=== PATIENT | female | born 1950 | race African-American/Black ===

== ENCOUNTER 2017-09-21 08:50 | Outpatient (CLI) | payer MEDICARE ==
--- NOTE | 2017-09-21 10:29 | ULT ---
ULTRASOUND ABDOMEN COMPLETE: HISTORY: Right upper quadrant abdominal pain. COMPARISON: CT from 2017. FINDINGS: Real-time ross scale, color Doppler, and spectral analysis of the abdomen was performed. The aorta i s not dilated. IVC is unremarkable. Visualized portions of the pancreas are unremarkable. Normal increased hepatic echotexture. The liver measures 17.2 cm in length. The portal vein is patterson nt, antegrade flow. Common bile duct measures just over 6 mm, although normal in a patient of this a ge. Gallbladder wall thickness is normal. No pericholecystic fluid. The right kidney measures 12.6 x 3.9 x 4 cm without mass, hydronephrosis, or abnormal calcifications. The spleen measures 8.1 cm in length. The left kidney measures 11.5 x 5.7 x 5 cm with a 1.3 cm cys t. IMPRESSION: 1. Increased hepatic echotexture suggesting steatosis. 2. Left interpolar renal cyst measuring up to 1.3 cm. POS: [facility]
== END 2017-09-21 08:51 | disposition home or self-care (01) ==
LOC: SCSULT 08:50
PROVIDERS: ATTEND Internal Medicine Gastroenterology
DX: N28.1 Cyst of kidney, acquired (principal); K21.9 Gastro-esophageal reflux disease without esophagitis; R10.10 Upper abdominal pain, unspecified; R19.7 Diarrhea, unspecified; Z85.038 Personal history of other malignant neoplasm of large intestine; Z90.49 Acquired absence of other specified parts of digestive tract
CPT/HCPCS: 76700

== ENCOUNTER 2017-11-18 09:40 | Outpatient (CLI) | payer MEDICARE ==
[2017-11-18 11:06] LABS: Estimated GFR-MDRD - POC Greater than 90
--- NOTE | 2017-11-18 12:22 | CT ---
CT OF THE ABDOMEN AND PELVIS WITHOUT AND WITH CONTRAST: Date: 11/18/17 COMPARISON: None. HISTORY: Abdominal bloating and diarrhea. History of colon cancer. Status post right colectomy and appendectom y. TECHNIQUE: Multiple contiguous axial images were obtained in a CT of the abdomen and pelvis without and with IV contrast. Negative oral contrast administered. Sagittal and coronal reformats performed. FINDINGS: The liver, gallbladder, kidneys, adrenal glands, spleen, and pancreas are unremarkable. No free air, free fluid, or stranding changes are seen in the abdomen or pelvis. The reproductive organs are unremarkable. No abdominal or pelvic lymphadenopathy seen. Atherosclerotic calcifications are seen in the aorta. There is a moderate amount of stool throughout the colon. The small bowel is normal in caliber withou t significant distention. There is an area of apparent thickening of the proximal small bowel in the left abdomen seen on the more delayed phase images, but this is not apparent on the arterial phase im ages and may be transient rather than persistent thickening. The distal small bowel is unremarkable. The osseous structures and abdominal wall soft tissues are unremarkable. Visualized inferior thorax i s unremarkable. IMPRESSION: The proximal small bowel demonstrates an area of apparent thickening on the more delayed phase postco ntrast images. This may be transient as no definite thickening is seen in this location on the arter ial phase images. POS: [facility]
== END 2017-11-18 09:41 | disposition home or self-care (01) ==
LOC: CT 09:40
PROVIDERS: ATTEND Internal Medicine Gastroenterology
DX: R14.0 Abdominal distension (gaseous) (principal); R19.7 Diarrhea, unspecified; K21.9 Gastro-esophageal reflux disease without esophagitis; C18.2 Malignant neoplasm of ascending colon
CPT/HCPCS: 74178; 82565

== ENCOUNTER 2018-06-09 09:04 | Outpatient (CLI) | payer MEDICARE ==
--- NOTE | 2018-06-09 10:27 | MMO ---
BILATERAL MAMMOGRAMS: DATE: 06/09/18 HISTORY: Screening mammography. COMPARISON: 01/29/16. FINDINGS: Scattered fibroglandular densities and benign-appearing calcifications. No dominant mass or suspiciou s calcifications. The study was evaluated with the assistance of computer-aided detection. IMPRESSION: BIRADS 1: Negative Suggest routine follow-up. POS: [facility]
== END 2018-06-09 09:05 | disposition home or self-care (01) ==
LOC: SCSMAMMO 09:04
PROVIDERS: ATTEND Nurse Practitioner Adult Health
DX: Z12.31 Encounter for screening mammogram for malignant neoplasm of breast (principal)
CPT/HCPCS: 77067

== ENCOUNTER 2019-02-07 11:34 | Inpatient (IN) | payer MEDICARE ==
--- NOTE | 2019-02-07 12:56 | PDOC.FPRHP ---
- History of Present Illness Chief Complaint: abdominal pain History of Present Illness: Pt is 68-yo female w/ PMHx of T2DM, HTN, and colon cancer resected by hemicolectomy ~30 years ago, who presented to outside ED w/ abdominal pain, gas , abdominal cramping, and bloating which has been worsening over the past month. Pt was taking medication for gastritis, but this stopped working and her indigestion worsened. About 3 days ago she had diarrhea, nonbloody. Last bowel movement last night; it was soft and normal. She vomited once this AM, nonbloody. Came to ED since symptoms had not been resolving. Denies fevers, chills. ED Course: received 4mg zofran at [facility], labs drawn, started LR. NG 700 mL output. - Allergies/Adverse Reactions Allergies Allergy/AdvReac Type Severity Reaction Status Date / Time No Known Allergies Allergy Verified 09/08/16 17:04 - Home Medications Medication Instructions Recorded Confirmed Type Amlodipine Besylate [amLODIPine 5 mg PO BID 09/18/14 09/08/16 History Besylate] Aspirin [Aspirin EC] 81 mg PO DAILY 09/18/14 09/08/16 History Esomeprazole Magnesium [NexIUM] 40 mg PO QAM-WM 09/18/14 09/08/16 History Insulin Glargine,Hum.Rec.Anlog 50 unit SC 09/18/14 09/08/16 History [Lantus Solostar] metFORMIN HCl 1,000 mg PO DAILY 09/18/14 09/08/16 History - History PMHx: - HTN - T2DM - Arthritis - carpal tunnel - Raynaud's syndrome - GERD and gastritis PSHx: - D&C - Hemicolectomy for colon cancer FHx: not assessed Social: - Lives at home w/ . Stays active. - Former smoker: 0.5 ppd for 15-20 years. Quit ~15 years ago - Denies alcohol, drug use. - Review of Systems General: reports: weight/appetite/sleep changes (decreased appetite). denies: fever/chills ENT: denies: nasal congestion, rhinorrhea Respiratory: reports: cough. denies: congestion, shortness of breath Cardiovascular: denies: chest pain, edema Gastrointestinal: reports: nausea, vomiting, diarrhea, abdominal pain. denies: constipation, GI bleeding Genitourinary: denies: dysuria Skin: denies: rashes Musculoskeletal: reports: arthritis/arthralgias Neurological: denies: numbness, seizure Psychological: denies: anxiety, depression - Vital signs BP: 146/78 HR: 98 RR: 17 Tmax: 99.5 Pox: 98 % on RA Wt: 82 kg - Physical Exam Constitutional: NAD, awake, alert and oriented HEENT: normocephalic and atraumatic, EOMI, no scleral icterus, grossly normal vision, grossly normal hearing, MMM, oropharynx clear Heart: RRR, normal S1/S2, no murmurs/rubs/gallops, no edema Lungs: CTAB, no respiratory distress Abdomen: soft (mild distension, tympanic to percussion), non-tender -Abdomen: bowel sounds hypoactive Musculoskeletal: normal tone Neurological: no focal deficit Skin: no rash/lesions, good turgor Heme/Lymphatic: no unusual bruising or bleeding, no purpura, no petechia Psychiatric: normal mood and affect, intact recent and remote memory FMR H&P: Results - Labs Lab results: Anion gap 17. CBC wnl CMP wnl, except glucose of 214 lipase neg - Radiology Interpretation CT scan - abdomen Status: image reviewed by me, report reviewed by me Additional comment: c/w SBO Other Status: image reviewed by me, report reviewed by me Additional comment: KUB: c/w SBO FMR H&P: A/P - Problem List (1) Arthritis Current Visit: Yes Status: Chronic Code(s): M19.90 - UNSPECIFIED OSTEOARTHRITIS, UNSPECIFIED SITE (2) Gastritis Current Visit: Yes Status: Chronic Code(s): K29.70 - GASTRITIS, UNSPECIFIED , WITHOUT BLEEDING (3) SBO (small bowel obstruction) Current Visit: No Status: Acute Code(s): K56.69 - OTHER INTESTINAL OBSTRUCTION * DO NOT USE * (4) Diabetes type 2, controlled Current Visit: No Status: Chronic Code(s): E11.9 - TYPE 2 DIABETES MELLITUS WITHOUT COMPLICATIONS (5) GERD (gastroesophageal reflux disease) Current Visit: No Status: Chronic Code(s): K21.9 - GASTRO-ESOPHAGEAL REFLUX DISEASE WITHOUT ESOPHAGITIS (6) Hypertension Current Visit: No Status: Chronic Code(s): I10 - ESSENTIAL (PRIMARY) HYPERTENSION - Plan 68 yo female admitted for: Small bowel obstruction - CT abd in outside ED showing above Dx - NPO strict - bowel rest - pain mgmt: not currently w/ symptoms, morphine 2 mg q4h prn - LR at 125 ml/hr - NG tube in place, intermittent low wall suction - Zofran prn for nausea - strict I/Os - ambulate TID Elevated anion gap - possibly 2/2 to intake/output imbalance - will rehydrate and repeat CMP tomorrow Type 2 diabetes, on insulin - hold home insulin and diabetes medications - mild sliding scale insulin since pt is NPO - glucose checks TID while NPO, qACHS when we begin advancing diet Gastritis GERD - will give famotidine 20mg iv bid HTN - will give labetalol 10mg IV prn - begin home HTN meds once able to tolerate PO - daughter to bring in home med list sometime later today VTE PPx: SCDs only. GI PPx: famotidine 20mg IV BID Fluids: LR at 125 ml/hr Diet: NPO strict Disposition/LOS: Admit to inpatient surgical non-ortho floor. FMR H&P: Upper Level - Plan Date/Time: 02/07/19 1256 HPI: This is a 68 yo F with PMH including DM, Hemicolectomy 35 yrs ago 2/2 colon cancer, multiple previous SBOs, and HTN who comes in with abdominal pain which has been getting worse for the last month. Over the last few days has gotten acutely worse and vomited x1 this AM. States she did have a normal BM this AM, non-bloody. Denies fevers, chills, sweats. 12 point ROS otherwise negative PHYSICAL EXAMINATION: General: NAD, alert and oriented x3 HEENT: PERRLA, EOMI, normal sclera, oropharynx without erythema or exudate Neck: Supple. Full ROM. Heart/Cardiovascular System: RRR, Cap refill < 3 seconds, no rub, no murmur Lungs/Respiratory System: clear to auscultation bilaterally. No increased work of breathing. Room air. Abdomen/Gastro-Intestinal System: no abdominal tenderness, high pitched bowel sounds, no masses, no organomegaly Extremities: Warm extremities. No cyanosis or edema. Neuro: No gross deficits appreciated. CN 2-12 grossly intact Psychiatry: Awake, Alert and cooperative with exam Skin: No lesions, rashes, or ulcers Musculoskeletal: Full ROM A/P: #SBO- high-grade - has been evaluated by surgery, appreciate recs - medical management for now NPO, NG tube, Fluids - morphine, Zofran PRN - about 1L total output from NG tube this AM # DM - lantus 45U daily at home - NPO so sliding scale for now # Asymptomatic UTI - monitor #HTN Fluids: LR Code status: full PPx: lovenox Dispo: inpatient Addendum - Attending - Attending Attestation Date/Time: 02/07/19 9119 I personally evaluated the patient and discussed the management with Dr. Cooley I agree with the History, Examination, Assessment and Plan documented above with any addition or exceptions noted below- 68 yo female w/ PMHx of T2DM, HTN, and colon cancer resected by hemicolectomy ~30 years ago, who presented to [place] ED w/ abdominal pain, gas, abdominal cramping, and bloating which has been worsening over the past month. Today she had 1 episode of vomiting and has had some loose stools. Denies any fever or chills. Had a similar episode 2 years ago resolved with NGT suction and conservative management. PMH/PSH/Meds/ SH reviewed and agree with resident's documentation. Afebrile VSS. Exam repeated by me. Labs: WBC=8.3, H/H=12.1/40.8, Oug=821, By=817, K=4.1, Xf=023, CO2=22, BUN/Cr=9/1.01, Fzzf=402, Ca=11.2, Alb=4.6, AST/ALT=13/13 CT abd- dilated proximal and mid loops of bowel c/w high grade SBO A/P: 1) SBO- NGT placed for decompression; Surgery consulted await further recommendations. 2) DM - NPO; hold insulin; monitor accuchecks q6 hours. 3) HTN- will use labetolol IV as needed.
[2019-02-07] MEDS ORDERED: Acetaminophen 325 MG TAB PO PRN (13:20)
[2019-02-07] MEDS ORDERED: Ondansetron PF 4 MG/2 ML Vial IVP PRN (13:20)
[2019-02-07] MEDS ORDERED: Ondansetron ODT 4 MG TAB PO PRN (13:20)
[2019-02-07] MEDS ORDERED: Acetaminophen 650 MG Suppository PR PRN (13:20)
[2019-02-07] MEDS ORDERED: Dextrose 50% Abboject 50 ML SYRINGE SLOW IVP PRN (13:38)
[2019-02-07] MEDS ORDERED: Dextrose 5% in Water 1,000 ML IV PRN (13:38)
[2019-02-07] MEDS ORDERED: Labetalol HCl 100 MG/20 ML VIAL SLOW IVP PRN (13:40)
[2019-02-07] MEDS ORDERED: Morphine 2 MG/ML SYRINGE SLOW IVP PRN (13:41)
[2019-02-07 15:43] VITALS: BMI 27.5
[2019-02-07] MEDS: Lactated Ringer's 1,000 ML IV SCH ×2 (17:37→20:35)
[2019-02-07] MEDS ORDERED: FLU VACC TS2019-20(65YR UP)/PF 180 MCG/0.5 ML SYRINGE IM ONE (18:00)
[2019-02-07] MEDS: Famotidine/PF 20 mg/2ml Vial SLOW IVP SCH (20:04)
[2019-02-08] MEDS: HumaLOG 300 UNITS/3 ML VIAL SC PRN ×3 (00:52→17:27)
[2019-02-08] MEDS: Lactated Ringer's 1,000 ML IV SCH ×3 (03:48→19:38)
[2019-02-08 06:05] LABS: ALT (SGPT) 8 U/L (8-55); AST (SGOT) 12 U/L (5-34); Albumin 3.7 g/dL (3.4-4.8); Alkaline Phosphatase 68 U/L (40-110); Anion Gap 14 mmol/L (10-20); BUN (Urea Nitrogen) 8 mg/dL (9.8-20.1); Bilirubin, Total 0.6 mg/dL (0.2-1.2); Calc. Creatinine Clearance 75 mL/min (70-130); Calcium 9.3 mg/dL (7.8-10.44); Carbon Dioxide 29 mmol/L (23-31); Chloride 103 mmol/L (98-107); Estimated GFR-MDRD 74; Globulin 2.8 g/dL (2.4-3.5); Glucose 166 mg/dL (80-115); Potassium 3.5 mmol/L (3.5-5.1); Protein, Total 6.5 g/dL (6.0-8.3); Sodium 142 mmol/L (136-145)
[2019-02-08 06:06] LABS: #Basophils 0.1 thou/uL (0.0-0.2); #Lymphocytes 1.5 thou/uL (1.20-3.40); #Monocytes 0.5 thou/uL (0.11-0.59); #Neutrophils 5.6 thou/uL (1.40-6.50); %Basophils 1.1 % (0.0-1.0); %Eosinophils 0.4 % (0.0-10.0); %Lymphocytes 19.1 % (21.0-51.0); %Monocytes 6.3 % (0.0-10.0); %Neutrophils 73.2 % (42.0-75.0); Hemoglobin 10.4 g/dL (12.0-16.0); MDiff Complete? YES; Mean Corpuscular HGB CONC 31.3 g/dL (32.0-36.0); Mean Corpuscular Hemoglobin 23.4 pg (27.0-31.0); Mean Corpuscular Volume 74.9 fL (78.0-98.0); Mean Platelet Volume 10.2 fL (7.4-10.4); Microcytosis SLIGHT = 6-15 cells (100X) (0-5/hpf); Platelet Count 229 thou/uL (130-400); Platelet Morphology Comment Appears Adequate; RBC Distribution Width 16.6 % (11.5-14.5); Red Blood Cell (RBC) Count 4.44 mill/uL (4.20-5.40); White Blood Cell (WBC) Count 7.6 thou/uL (4.8-10.8)
--- NOTE | 2019-02-08 06:59 | PDOC.FM ---
- Subjective Subjective: NAEO. Patient resting comfortably sitting up in bed. SHe reports feeling much better than yesterday. She denies any abdominal pain. Denies any NV or chest pain. - Objective MAR Reviewed: Yes Vital Signs & Weight: Vital Signs (12 hours) Temp Pulse Resp BP Pulse Ox 02/08/19 03:37 99.1 F 97 16 125/69 95 02/07/19 23:37 99.8 F H 100 16 113/69 94 L 02/07/19 20:15 99.6 F 99 16 146/68 H 95 02/07/19 20:00 95 Weight Weight 82.214 kg I&O: 02/06/19 02/07/19 02/08/19 06:59 06:59 06:59 Intake Total 3377 Output Total 1300 Balance 7 Result Diagrams: 02/08/19 05:20 02/08/19 05:20 Phys Exam - Physical Examination Constitutional: NAD HEENT: PERRLA, moist MMs, sclera anicteric Neck: supple, full ROM Respiratory: clear to auscultation bilateral Cardiovascular: RRR Gastrointestinal: soft, non-tender, no distention, positive bowel sounds Musculoskeletal: no edema, pulses present Neurological: non-focal, moves all 4 limbs Psychiatric: normal affect, A&O x 3 Skin: no rash, normal turgor, cap refill <2 seconds Dx/Plan (1) Arthritis Code(s): M19.90 - UNSPECIFIED OSTEOARTHRITIS, UNSPECIFIED SITE Status: Chronic (2) Gastritis Code(s): K29.70 - GASTRITIS, UNSPECIFIED, WITHOUT BLEEDING Status: Chronic (3) SBO (small bowel obstruction) Code(s): K56.69 - OTHER INTESTINAL OBSTRUCTION * DO NOT USE * Status: Acute (4) Diabetes type 2, controlled Code(s): E11.9 - TYPE 2 DIABETES MELLITUS WITHOUT COMPLICATIONS Status: Chronic (5) GERD (gastroesophageal reflux disease) Code(s): K21.9 - GASTRO-ESOPHAGEAL REFLUX DISEASE WITHOUT ESOPHAGITIS Status: Chronic (6) Hypertension Code(s): I10 - ESSENTIAL (PRIMARY) HYPERTENSION Status: Chronic - Plan Plan: 68 yo female admitted for: Small bowel obstruction CT abd in outside ED showing high grade SBO involving mid-distal small bowel. - NPO strict, LR @ 125mls/hr. Will continue to monitor and when patient can start to advance diet as tolerated. - Pain mgmt: not currently w/ symptoms, morphine 2 mg q4h prn - NG tube in place, intermittent low wall suction NG has put out 1300ml as of this morning. - Zofran prn for nausea - strict I/Os - Encourage frequent ambulation; walking program in place Elevated anion gap possibly 2/2 to intake/output imbalance - patient given IVFs, resolved gap Type 2 diabetes, on insulin - hold home insulin and diabetes medications - mild sliding scale insulin since pt is NPO - glucose checks TID while NPO, qACHS when we begin advancing diet Gastritis - aware, will monitor GERD - will give famotidine 20mg IV BID HTN - Will give labetalol 10mg IV prn - begin home HTN meds once able to tolerate PO VTE PPx: SCDs only. GI PPx: famotidine 20mg IV BID Fluids: LR at 125 ml/hr Diet: NPO strict Disposition/LOS: >2midnights, dc pending clinical course Case discussed with Dr. Schultz Addendum - Attending - Attending Attestation Date/Time: 02/08/19 2836 I personally evaluated the patient and discussed the management with Dr. Costa I agree with the History, Examination, Assessment and Plan documented above with any addition or exceptions noted below- Patient denies complaints, Denies any abdominal pain. (+) flatus. No BM. Feels less bloated/distended. Afebrile VSS A/P: 1) SBO - appears to be improving. Will clamp NGT and have patient ambulate to encourage bowels. If no pain, N/V will cautiously advance to clears. 2) DM- well controlled; continue to monitor.
[2019-02-08] MEDS: Famotidine/PF 20 mg/2ml Vial SLOW IVP SCH (08:39)
[2019-02-09] MEDS: HumaLOG 300 UNITS/3 ML VIAL SC PRN ×2 (00:38→11:00)
[2019-02-09] MEDS: Lactated Ringer's 1,000 ML IV SCH ×3 (03:19→23:44)
--- NOTE | 2019-02-09 06:42 | PDOC.FM ---
- Subjective Subjective: NAEO. Patient feels much improved. Denies any abdominal pain. Passing gas, no BM yet. She has been tolerating PO well. Her diet was advanced yesterday with no issues. Patient eating fruit for breakfast this AM. - Objective MAR Reviewed: Yes Vital Signs & Weight: Vital Signs (12 hours) Temp Pulse Resp BP Pulse Ox 02/09/19 03:23 99.2 F 80 16 119/67 95 02/09/19 00:32 95 02/08/19 23:35 99.3 F 87 16 119/65 95 02/08/19 20:00 94 L 02/08/19 19:31 98.5 F 96 16 148/70 H 94 L Weight Admit Weight 82.214 kg Weight 82.214 kg I&O: 02/07/19 02/08/19 02/09/19 06:59 06:59 06:59 Intake Total 3377 6070 Output Total 1300 300 Balance 2077 5770 Result Diagrams: 02/08/19 05:20 02/08/19 05:20 Phys Exam - Physical Examination Constitutional: NAD HEENT: moist MMs, sclera anicteric Neck: supple, full ROM Respiratory: clear to auscultation bilateral Cardiovascular: RRR, no significant murmur, no rub Gastrointestinal: soft, non-tender, no distention, positive bowel sounds no guarding, no rebound Musculoskeletal: no edema, pulses present Neurological: non-focal, moves all 4 limbs Psychiatric: normal affect, A&O x 3 Skin: no rash, normal turgor, cap refill <2 seconds Dx/Plan (1) Arthritis Code(s): M19.90 - UNSPECIFIED OSTEOARTHRITIS, UNSPECIFIED SITE Status: Chronic (2) Gastritis Code(s): K29.70 - GASTRITIS, UNSPECIFIED, WITHOUT BLEEDING Status: Chronic (3) SBO (small bowel obstruction) Code(s): K56.69 - OTHER INTESTINAL OBSTRUCTION * DO NOT USE * Status: Acute (4) Diabetes type 2, controlled Code(s): E11.9 - TYPE 2 DIABETES MELLITUS WITHOUT COMPLICATIONS Status: Chronic (5) GERD (gastroesophageal reflux disease) Code(s): K21.9 - GASTRO-ESOPHAGEAL REFLUX DISEASE WITHOUT ESOPHAGITIS Status: Chronic (6) Hypertension Code(s): I10 - ESSENTIAL (PRIMARY) HYPERTENSION Status: Chronic - Plan Plan: 68 yo female admitted for: Small bowel obstruction CT abd in outside ED showing high grade SBO involving mid-distal small bowel. - Diet advanced, patient now on CC, doing well. - Pain mgmt: not currently w/ symptoms, morphine 2 mg q4h prn - has not required. - Zofran prn for nausea - Strict I/Os - Encourage frequent ambulation; walking program in place Elevated anion gap possibly 2/2 to intake/output imbalance - patient given IVFs, resolved gap Type 2 diabetes, on insulin - Will resume home meds - ACHS and SS Gastritis - aware, will monitor GERD - continue home meds HTN - Will give labetalol 10mg IV prn - continue home meds VTE PPx: SCDs only. GI PPx: famotidine 20mg IV BID Fluids: SL, tolerating PO Diet: CC Disposition/LOS: discharge today as patient is tolerating PO and symptoms have resolved Case discussed with Dr. Schultz Addendum - Attending - Attending Attestation Date/Time: 02/09/19 8864 I personally evaluated the patient and discussed the management with Dr. Costa I agree with the History, Examination, Assessment and Plan documented above with any addition or exceptions noted below - Patient denies complaints. Tolerating regualr diet. (+) flatus. No BM. Ambulating without difficulty Afebrile VSS A/P: 1) SBO- resolved; tolerating diet. Continue ambulation and poddible d/c home later today.
[2019-02-09] MEDS: Amlodipine 5 MG TAB PO SCH ×2 (07:57→20:48)
[2019-02-09] MEDS: Aspirin 81 mg Enteric Coated Tablet PO SCH (07:57)
[2019-02-09] MEDS: metFORMIN 500 MG TAB PO SCH (07:57)
[2019-02-09] MEDS ORDERED: Famotidine/PF 20 mg/2ml Vial SLOW IVP SCH (09:00)
[2019-02-09] MEDS ORDERED: MD-Gastroview 120 ML BOT ONE (10:16)
[2019-02-09] MEDS ORDERED: Polyethylene Glycol 3350 17 GM Packet PO SCH (10:45)
--- NOTE | 2019-02-09 13:29 | RAD ---
ACUTE ABDOMEN SERIES: CLINICAL HISTORY: Small bowel obstruction. COMPARISON: 02/07/2019. FINDINGS: No consolidation or effusion. No free air. Bowel gas pattern is nonspecific with scattered air-filled bowel and air noted throughout the course of the colon. There is moderate to large volume retained fecal material. IMPRESSION: Nonspecific bowel gas pattern. Bowel gas pattern has improved from 02/07/2019 comparison exam. Transcribed Date/Time: 02/09/2019 2:01 PM
[2019-02-09] MEDS ORDERED: Simethicone Chewable 80 MG TAB PO PRN (13:32)
[2019-02-09] MEDS ORDERED: INSULIN GLARGINE HUM REC ANLOG 64 UNIT SC SCH (21:00)
[2019-02-09] MEDS: Insulin Glargine 64 UNITS in Pre-Filled Syringe 1 EACH SC SCH (21:38)
--- NOTE | 2019-02-09 23:16 | RAD ---
XR Small Bowel STANDARD History: Small bowel obstruction Comparison: CT exam 2 days prior Findings: Contrast was instilled into the stomach through the enteric tube. Contrast transits through small bowel and through the large bowel by 3 hours with contrast within the rectum by 4 hours. Impression: No evidence for high-grade obstruction.
--- NOTE | 2019-02-10 06:30 | PDOC.FM ---
- Subjective Subjective: Yesterday, the patient became bloated and uncomfortable after eating lunch. She felt as if she could not pass gas. She had still not have a BM. An NG tube was placed. The patient kept NPO. An abdominal series and small bowel follow through showed no obstruction. This morning on exam the patient states she feels better overall. She had 3 BMs overnight. She denies any abdominal pain, bloating, NV. She states after having BMs she has felt better. She is ambulating. Denies fever/chills. - Objective MAR Reviewed: Yes Vital Signs & Weight: Vital Signs (12 hours) Temp Pulse Resp BP BP BP Pulse Ox 02/10/19 03:20 98.5 F 79 16 143/69 H 96 02/09/19 23:25 97.6 F 88 16 155/77 H 97 02/09/19 20:48 95 158/75 H 02/09/19 19:27 98.6 F 95 16 158/75 H 96 Weight Admit Weight 82.214 kg Weight 82.214 kg I&O: 02/08/19 02/09/19 02/10/19 06:59 06:59 06:59 Intake Total 3377 6070 Output Total 1300 300 Balance 2077 5770 Result Diagrams: 02/08/19 05:20 02/08/19 05:20 Phys Exam - Physical Examination Constitutional: NAD HEENT: moist MMs, sclera anicteric Neck: supple, full ROM Respiratory: clear to auscultation bilateral Cardiovascular: RRR, no significant murmur, no rub Gastrointestinal: soft, non-tender, no distention, positive bowel sounds no guarding, no rebound Musculoskeletal: no edema, pulses present Neurological: non-focal, moves all 4 limbs Psychiatric: normal affect, A&O x 3 Skin: no rash, normal turgor, cap refill <2 seconds Dx/Plan (1) Arthritis Code(s): M19.90 - UNSPECIFIED OSTEOARTHRITIS, UNSPECIFIED SITE Status: Chronic (2) Gastritis Code(s): K29.70 - GASTRITIS, UNSPECIFIED, WITHOUT BLEEDING Status: Chronic (3) SBO (small bowel obstruction) Code(s): K56.69 - OTHER INTESTINAL OBSTRUCTION * DO NOT USE * Status: Acute (4) Diabetes type 2, controlled Code(s): E11.9 - TYPE 2 DIABETES MELLITUS WITHOUT COMPLICATIONS Status: Chronic (5) GERD (gastroesophageal reflux disease) Code(s): K21.9 - GASTRO-ESOPHAGEAL REFLUX DISEASE WITHOUT ESOPHAGITIS Status: Chronic (6) Hypertension Code(s): I10 - ESSENTIAL (PRIMARY) HYPERTENSION Status: Chronic - Plan Plan: 68 yo female admitted for: Small bowel obstruction CT abd in outside ED showing high grade SBO involving mid-distal small bowel. - on admission NG tube placed, kept NPO. On 02/08 diet was advanced and patient was doing well. On afternoon of 02/09 patient started to feel bloated/ uncomfortable. NG tube replaced. Gen surg consulted. Abdominal series showed improvement from previous imaging. Small bowel follow through showed no obstruction. Due to these findings gen surg will not be necessary. - Will clamp NG tube today, advance diet starting with clear liquids only if patient does well with NG clamped. - Pain mgmt: not currently w/ symptoms, morphine 2 mg q4h prn - has not required. - Zofran prn for nausea - Strict I/Os - Encourage frequent ambulation; walking program in place Elevated anion gap, resolved possibly 2/2 to intake/output imbalance - patient given IVFs, resolved gap Type 2 diabetes, on insulin - Will resume home meds - ACHS and SS Gastritis - aware, will monitor GERD - continue home meds HTN - Will give labetalol 10mg IV prn - continue home meds VTE PPx: SCDs only. GI PPx: famotidine 20mg IV BID Fluids: SL, tolerating PO Diet: CC Disposition/LOS: pending clinical course, dc 1-2 days Case discussed with Dr. Schultz Addendum - Attending - Attending Attestation Date/Time: 02/10/192023 I personally evaluated the patient and discussed the management with Dr. Costa I agree with the History, Examination, Assessment and Plan documented above with any addition or exceptions noted below- Patient feeling better. Has had 3 BM overnight. Feeling less bloated. Afebrile VSS. A/P: 1) Partial SBO- resolved. Will clamp NGT and advance diet slowly. Encouraged to ambulate.
[2019-02-10] MEDS: Lactated Ringer's 1,000 ML IV SCH ×3 (08:20→21:11)
[2019-02-10] MEDS: metFORMIN 500 MG TAB PO SCH (08:21)
[2019-02-10] MEDS: Aspirin 81 mg Enteric Coated Tablet PO SCH (08:21)
[2019-02-10] MEDS: Amlodipine 5 MG TAB PO SCH ×2 (08:21→21:11)
[2019-02-10] MEDS: Insulin Glargine 64 UNITS in Pre-Filled Syringe 1 EACH SC SCH (21:11)
--- NOTE | 2019-02-11 06:50 | PDOC.FM ---
- Subjective Subjective: NAEO. Patient resting comfortably in bed. No complaints. Patient tolerating PO well. She was able to eat clear liquids for lunch then full liquids for dinner. She denies any abdominal pain, bloating, NV. She has had a few BMs yesterday and is passing gas. She states she is hungry and would like to continue advancing her diet. - Objective MAR Reviewed: Yes Vital Signs & Weight: Vital Signs (12 hours) Temp Pulse Resp BP Pulse Ox 02/11/19 03:07 99.4 F 85 16 143/72 H 96 02/10/19 23:15 99.0 F 76 16 152/75 H 96 02/10/19 21:11 77 02/10/19 19:15 98.5 F 77 16 170/72 H 98 Weight Admit Weight 82.214 kg Weight 82.214 kg I&O: 02/09/19 02/10/19 02/11/19 06:59 06:59 06:59 Intake Total 6070 1350 2211 Output Total 300 550 Balance 5770 800 2211 Result Diagrams: 02/08/19 05:20 02/08/19 05:20 Phys Exam - Physical Examination Constitutional: NAD HEENT: moist MMs, sclera anicteric Neck: supple, full ROM Respiratory: clear to auscultation bilateral Cardiovascular: RRR, no significant murmur, no rub Gastrointestinal: soft, non-tender, no distention, positive bowel sounds Musculoskeletal: pulses present Neurological: non-focal, moves all 4 limbs Psychiatric: normal affect, A&O x 3 Skin: no rash, normal turgor, cap refill <2 seconds Dx/Plan (1) Arthritis Code(s): M19.90 - UNSPECIFIED OSTEOARTHRITIS, UNSPECIFIED SITE Status: Chronic (2) Gastritis Code(s): K29.70 - GASTRITIS, UNSPECIFIED, WITHOUT BLEEDING Status: Chronic (3) SBO (small bowel obstruction) Code(s): K56.69 - OTHER INTESTINAL OBSTRUCTION * DO NOT USE * Status: Acute (4) Diabetes type 2, controlled Code(s): E11.9 - TYPE 2 DIABETES MELLITUS WITHOUT COMPLICATIONS Status: Chronic (5) GERD (gastroesophageal reflux disease) Code(s): K21.9 - GASTRO-ESOPHAGEAL REFLUX DISEASE WITHOUT ESOPHAGITIS Status: Chronic (6) Hypertension Code(s): I10 - ESSENTIAL (PRIMARY) HYPERTENSION Status: Chronic - Plan Plan: 68 yo female admitted for: Small bowel obstruction CT abd in outside ED showing high grade SBO involving mid-distal small bowel. - on admission NG tube placed, kept NPO. On 02/08 diet was advanced and patient was doing well. On afternoon of 02/09 patient started to feel bloated/ uncomfortable. NG tube replaced. Gen surg consulted. Abdominal series showed improvement from previous imaging. Small bowel follow through showed no obstruction. Due to these findings gen surg will not be necessary. - Discontinue NG tube. Patient diet advanced from clear liquids to full. Will continue to advance as tolerated. - Pain mgmt: not currently w/ symptoms, morphine 2 mg q4h prn - has not required. - Zofran prn for nausea - Strict I/Os - Encourage frequent ambulation. Walking program in place Elevated anion gap, resolved possibly 2/2 to intake/output imbalance - patient given IVFs, resolved gap Type 2 diabetes, on insulin - Will resume home meds - ACHS and SS Gastritis - aware, will monitor GERD - continue home meds HTN - Will give labetalol 10mg IV prn - continue home meds VTE PPx: SCDs Diet: CC Code: FULL Disposition/LOS: likely dc today Case discussed with Dr. Schultz Addendum - Attending - Attending Attestation Date/Time: 02/11/19 1936 I personally evaluated the patient and discussed the management with Dr. Costa I agree with the History, Examination, Assessment and Plan documented above with any addition or exceptions noted below - Patient without complaints. (+) flatus, (+) BM yesterday Tolerating full liquids. Afebrile VSS. A/P: 1) Partial SBO- resolved; advance diet; if tolerates plan to d/c home this afternoon
[2019-02-11] MEDS: Amlodipine 5 MG TAB PO SCH (08:25)
[2019-02-11] MEDS: Aspirin 81 mg Enteric Coated Tablet PO SCH (08:25)
[2019-02-11] MEDS: metFORMIN 500 MG TAB PO SCH (08:25)
[2019-02-11] MEDS ORDERED: Polyethylene Glycol 3350 17 GM Packet PO SCH (09:00)
[2019-02-11 15:35] VITALS: BP 125/72; TEMP 98.7
--- NOTE | 2019-02-14 07:51 | PQF ---
[employer] Crystal Reports Win[employer] ALEXIA Reddy DIEGO HENSON MD [id number] [facility] [id number] CLINICAL DOCUMENTATION CLARIFICATION FORM: POST DISCHARGE Addendum to original discharge summary date: ____ Late entry note date: __ DATE: 02/14/2019 ATTN: DIEGO HENSON MD Please exercise your independent, professional judgment in responding to the clarification form. Clinical indicators are provided on the bottom of this form for your review Please check appropriate box(s) to clarify if the following diagnosis has been ruled in or ruled out: UTI [ ] Ruled in diagnosis [ ] Continue to treat [ ] Resolved [ ] Ruled out diagnosis [ ] Cannot rule out diagnosis [ ] Other diagnosis [ ] Unable to determine For continuity of documentation, please document condition throughout progress notes and discharge summary. Thank You. CLINICAL INDICATORS - SIGNS / SYMPTOMS / LABS - Asymptomatic UTI- Family medicine H&P, 02/07, DIEGO HENSON MD - Temp:99.5- H&P, 02/07, DIEGO HENSON MD - WBC: 7.6- Laboratory, 02/08 - Elevated anion gap resolved- Family medicine PN, 02/11, DIEGO HENSON MD RISK FACTORS -Partial SBO-Family medicine PN, 02/11, DIEGO HENSON MD -Gastritis-Family medicine PN, 02/11, DIEGO HENSON MD TREATMENTS -Monitor- H&P, 02/07, DIEGO HENSON MD (This form is maintained as a part of the permanent medical record) 2014 [employer]. All Rights Reserved Rigoberto Bonilla [not provided] [not provided] MTDD
--- NOTE | 2019-02-14 11:29 | DIS ---
DATE OF ADMISSION: 02/07/2019 DATE OF DISCHARGE: 02/11/2019 RESIDENT: Ligia Costa MD ADMITTING ATTENDING: Diego Henson MD. DISCHARGE ATTENDING: DIEGO HENSON MD CONSULTS: General Surgery. PROCEDURES: Small bowel follow-through on 02/09/2019. DISCHARGE MEDICATIONS: 1. Amlodipine 5 mg oral twice daily. 2. Aspirin 81 mg oral daily. 3. Insulin Lantus 64 units subcutaneous at bedtime. 4. Metformin 1000 mg oral daily. 5. Protonix 40 mg oral daily. DISCONTINUED MEDICATIONS: None. PRIMARY DIAGNOSES: 1. Small-bowel obstruction, resolved. 2. Elevated anion gap, resolved. SECONDARY DIAGNOSES: 1. Insulin-dependent diabetes type 2. 2. Gastritis. 3. Gastroesophageal reflux disease. 4. Hypertension. HISTORY OF PRESENT ILLNESS/HOSPITAL COURSE: This is a 68-year-old female with past medical history of type 2 diabetes, hypertension, and colon cancer, resected by hemicolectomy about 30 years ago, who presented to the ED with a chief complaint of abdominal pain, gas, abdominal cramping and bloating, which has been worsening over the past month or so. The patient does take medicine for gastritis, but that this stopped working and her indigestion also worsened. She endorsed some diarrhea that was nonbloody. She did have one bowel movement the day before, she endorsed vomiting at that time as well. In the ER, the patient received Zofran and was started on IV fluids. An NG tube was also placed with 700 mL output. The patient's vital signs remained stable throughout her stay. On physical exam, the patient had bowel sounds that are hypoactive. The patient's lab showed an anion gap of 17. She had a CT scan of the abdomen that showed a small bowel obstruction of the mid to distal small bowel. The patient was admitted to the medical floor. She was kept on n.p.o. diet and given bowel rest. Her pain was managed with morphine p.r.n. The patient was given famotidine IV b.i.d. On the second day her diet was advanced. She started to have abdominal pain and bloating and felt as if she could not pass gas. Surgery was consulted and ordered a small bowel follow through. No obstruction was seen so surgery did not see patient. The NG tube was replaced and she was put back as NPO. The next day we slowly advanced her diet as tolerated. She did much better and her pain resolved. She had several BMs and was passing gas. She was ambulating well and this was encouraged to be continued. Her chronic conditions remained stable throughout her stay. DISPOSITION: Stable. DISCHARGE INSTRUCTIONS: 1. Location: Home. 2. Diet: Diabetic diet. 3. Activity: Ad darwin. 4. Follow up with the PCP, Dr. Mota within a week. Job ID: [id number] MTDD
== END 2019-02-11 16:15 | disposition home or self-care (01) | DRG 390 ==
LOC: ERS 11:34 → SJJU 15:15
PROVIDERS: ADMIT Family Medicine; ATTEND Family Medicine
DX: K56.600 Partial intestinal obstruction, unspecified as to cause (principal); E11.9 Type 2 diabetes mellitus without complications; I10 Essential (primary) hypertension; M19.90 Unspecified osteoarthritis, unspecified site; K21.9 Gastro-esophageal reflux disease without esophagitis; K29.70 Gastritis, unspecified, without bleeding; I73.00 Raynaud's syndrome without gangrene; Z85.038 Personal history of other malignant neoplasm of large intestine; Z90.49 Acquired absence of other specified parts of digestive tract; Z79.4 Long term (current) use of insulin; Z98.51 Tubal ligation status
CPT/HCPCS: 36415; 36416; 74022; 74250; 80053; 85025; 90471; 90662; 99284; G0008; J1815; Q9963; S0028

== ENCOUNTER 2019-07-04 12:16 | Outpatient (CLI) | payer MEDICARE | END 2019-07-04 12:17 | disposition home or self-care (01) | PROVIDERS: ATTEND Nurse Practitioner Adult Health | DX: R07.9 Chest pain, unspecified (principal) | CPT/HCPCS: 36415; 83540; 83550; 85025; 93017 ==

== ENCOUNTER 2019-11-13 19:09 | Observation (INO) | payer MEDICARE, OTHER ==
[2019-11-13] MEDS ORDERED: Aspirin Chewable 81 MG TAB ONE (20:49)
--- NOTE | 2019-11-13 21:11 | PDOC.FPRHP ---
- History of Present Illness Chief Complaint: Chest Pain, Generalized Weakness History of Present Illness: Pt reports to ED today c/o generalized weakness for the past 2-3 days. She stated that she had a fever which started today. Daughter advised her to come to ER. She reports some nausea earlier in the day, but now states that she does not N/V/D. Denied any sick/COVID contacts. ED Course: Pt was at outlying ER initially. She was found to have a Temp of 101. Cardiac workup was negative. D-Dimer was elevated @ 2.07. CT Chest showed ground glass opacities, concerning for COVID 19. In our ER, she tested positive for COVID. - Allergies/Adverse Reactions Allergies Allergy/AdvReac Type Severity Reaction Status Date / Time No Known Allergies Allergy Verified 09/08/16 17:04 - Home Medications Medication Instructions Recorded Confirmed Type Amlodipine Besylate [amLODIPine 5 mg PO BID 09/18/14 11/13/19 History Besylate] Aspirin [Aspirin EC] 81 mg PO DAILY 09/18/14 11/13/19 History Insulin Glargine,Hum.Rec.Anlog 64 unit [facility] 09/18/14 11/13/19 History [Lantus Solostar] metFORMIN HCl 1,000 mg PO BID 09/18/14 11/13/19 History Pantoprazole [Protonix] 40 mg PO DAILY 02/07/19 11/13/19 History Metoprolol Succinate [Toprol XL] 25 mg PO DAILY 11/13/19 11/13/19 History - History PMHx: -Type 2 DM, Insulin Dependent -GERD -HTN -Arthritis -Hx of colon cancer PSHx: -Colon resection -Tubal Ligation FHx: -unknown Social: former smoker, quit 10 years ago, smoked for 30 years, no ETOH or drug use - Review of Systems General: reports: fever/chills Respiratory: denies: cough Cardiovascular: denies: chest pain Gastrointestinal: denies: vomiting, diarrhea, constipation, abdominal pain Neurological: reports: weakness - Vital signs BP: 111/65 HR: 85 RR: 20 Pulse ox: 98% - Physical Exam Constitutional: NAD, awake, alert and oriented Heart: RRR Lungs: CTAB Abdomen: soft, non-tender Skin: good turgor, capillary refill <2 seconds -Skin: no edema Psychiatric: normal mood and affect FMR H&P: Results - Labs Result Diagrams: 11/14/19 04:35 11/14/19 04:35 FMR H&P: A/P - Problem List (1) Generalized weakness Current Visit: Yes Status: Acute Code(s): R53.1 - WEAKNESS (2) Hypokalemia Current Visit: Yes Status: Acute Code(s): E87.6 - HYPOKALEMIA (3) Type 2 diabetes mellitus Current Visit: Yes Status: Acute (4) COVID-19 Current Visit: Yes Status: Acute Code(s): U07.1 - COVID-19 (5) GERD (gastroesophageal reflux disease) Current Visit: No Status: Chronic Code(s): K21.9 - GASTRO-ESOPHAGEAL REFLUX DISEASE WITHOUT ESOPHAGITIS (6) Hypertension Current Visit: No Status: Chronic Code(s): I10 - ESSENTIAL (PRIMARY) HYPERTENSION - Plan ## COVID 19 Positive -onset of symptoms was 2 days ago -CT Chest showed ground glass opacities -fever 101 -ferritin, CRP, CBC, d-dimer -patient has mild symptoms and satting on room air well, will not start on dexamethasone at this time ## Hypokalemia -replete with 40mEq KCl -BMP in AM ## Generalized Weakness -most likely d/t viral illness -monitor symptoms -will consult OT/PT if needed ## Type 2 DM, Insulin Dependent -lantus 64U -mild SSI -monitor glucose -continue home metformin ## HTN -home meds amlodipine and metoprolol restarted ## GERD -home pantoprazole restarted VTE PPX: lovenox GI PPX: home PPI Diet: CC/Heart Healthy IVF: SL Code: Full PCP: Nakul Dispo: admit to observation, expected length of stay less than 48 hours. monitor labs/electrolytes and symptoms FMR H&P: Upper Level - Plan Date/Time: 11/13/192105 Alannah Taylor, have evaluated this patient and agree with findings/plan as outlined by financial services internship resident. Pertinent changes/additions are listed here. 69 yo AAF is transferred from [place] for generalized weakness present x2 days. She had per ED report presented there for weakness, chest pain and with fever of 101. She was transferred here for further observation for ACS rule out. She denies any chest pain. Denies cough, congestion, difficulty breathing, and diarrhea. Reports nausea that has resolved. Denies muscle cramps. Reports normal PO intake. PE: Disposable stethoscope unavailable in ED Gen: NAD Resp: normal effort Ext: no edema, normal capillary refill, no rash Neuro: alert and oriented COVID+ -Symptom onset 11/10. Symptom was weakness/fatigue. Fever began today. -No respiratory distress or O2 requirement. Does not meet criteria for dexamethasone or other therapies apart from conservative treatment at this time. -Pending ferritin, crp. Trend d-dimer -CT chest with extensive ground glass opacities consistent with COVID. No aneurysm or dissection Hypokalemia -Replace and recheck in am Brief chest pain, resolved -Has hx of recent cath at [place] a few month ago without abnormality per patient, would be beneficial to request records tomorrow -Trop neg. Given ASA in ED Dispo: monitor overnight, no further cardiac workup likely necessary. Could likely discharge tomorrow if continues same clinical course. Addendum - Attending - Attending Attestation Date/Time: 11/13/19 [id number] I personally evaluated the patient and discussed the management with Dr. Coulter I agree with the History, Examination, Assessment and Plan documented above with any addition or exceptions noted below - 69 yo female with h/o DM, HTN, GERD presents c/o generalized weakness x 3 days. Denies fever/chills/dysuria/ nausea/vomiting. Denies SOB or chest pain. Decreased appetite for last few days. Denies any diarrhea. PMH/PSH/Meds/SH reviewed and agree with resident's documentation. Afebrile BP 116/54 P87 98%RA Exam repeated by me and agree with resident's findings. Labs: WBC=4.4, H/H=11.36/39.1, D-dimer-3.01, Fa=623, K =3.2, BUN/Cr=7/0.75, Blkr=480, trop 0.012->0.010 CTA- groundglass opacities b/l ; no PE. Rapid COVID (+). A/P: 1) Generalized weakness most likely secondary to COVID- continue gentle hydration and supportive care. 2) COVID pneumonia- no O2 requirement; continue supportive care. Will hold on starting dexamethasone as patient does not have an O2 requirement. 3) DM- continue home meds and monitor accuchecks.
[2019-11-13] MEDS ORDERED: Ondansetron PF 4 MG/2 ML Vial IVP PRN (21:47)
[2019-11-13] MEDS ORDERED: Ondansetron ODT 4 MG TAB PO PRN (21:47)
[2019-11-13 21:53] VITALS: BMI 27.7
[2019-11-13] MEDS ORDERED: Dextrose 5% in Water 1,000 ML IV PRN (21:55)
[2019-11-13] MEDS ORDERED: Dextrose 50% Abboject 50 ML SYRINGE SLOW IVP PRN (21:55)
[2019-11-13 22:44] LABS: Troponin I 0.024 ng/mL (< 0.028)
[2019-11-14] MEDS: Acetaminophen 325 MG TAB PO PRN ×2 (00:20→07:55)
[2019-11-14 02:16] LABS: Troponin I Less than 0.010 ng/mL (< 0.028)
[2019-11-14] MEDS ORDERED: Potassium Chloride 20 MEQ TAB PO SCH (03:00)
[2019-11-14 05:17] LABS: #Lymphocytes 1.1 thou/uL (1.20-3.40); #Monocytes 0.2 thou/uL (0.11-0.59); #Neutrophils 3.2 thou/uL (1.40-6.50); %Lymphocytes 24.4 % (21.0-51.0); %Monocytes 3.8 % (0.0-10.0); %Neutrophils 71.7 % (42.0-75.0); Hemoglobin 10.8 g/dL (12.0-16.0); Mean Corpuscular HGB CONC 31.1 g/dL (32.0-36.0); Mean Corpuscular Hemoglobin 24.8 pg (27.0-31.0); Mean Corpuscular Volume 79.8 fL (78.0-98.0); Mean Platelet Volume 10.4 fL (7.4-10.4); Platelet Count 175 thou/uL (130-400); RBC Distribution Width 14.9 % (11.5-14.5); Red Blood Cell (RBC) Count 4.35 mill/uL (4.20-5.40); White Blood Cell (WBC) Count 4.5 thou/uL (4.8-10.8)
[2019-11-14 05:29] LABS: ALT (SGPT) 9 U/L (8-55); AST (SGOT) 17 U/L (5-34); Albumin 3.4 g/dL (3.4-4.8); Alkaline Phosphatase 59 U/L (40-110); Anion Gap 12 mmol/L (10-20); BUN (Urea Nitrogen) 5 mg/dL (9.8-20.1); Bilirubin, Total 0.7 mg/dL (0.2-1.2); Calc. Creatinine Clearance 95 mL/min (70-130); Calcium 7.9 mg/dL (7.8-10.44); Carbon Dioxide 25 mmol/L (23-31); Chloride 104 mmol/L (98-107); Estimated GFR-MDRD Greater than 90; Glucose 160 mg/dL (83-110); Potassium 3.4 mmol/L (3.5-5.1); Protein, Total 6.4 g/dL (6.0-8.3); Sodium 138 mmol/L (136-145)
[2019-11-14] MEDS: HumaLOG 300 UNITS/3 ML VIAL SC PRN ×2 (06:22→10:47)
--- NOTE | 2019-11-14 06:42 | PDOC.FM ---
- Subjective Subjective: pt resting comfortably in bed, no sob, cough or chest pain. reports minimal appetite and fatigue. - Objective Vital Signs & Weight: Vital Signs (12 hours) Temp Pulse Resp BP Pulse Ox 11/14/19 03:52 99.9 F H 95 24 H 124/60 98 11/14/19 00:10 100.1 F H 89 24 H 119/56 L 100 11/13/19 21:33 99.8 F H 92 24 H 125/58 L 93 L Weight Weight 82.645 kg I&O: 11/12/19 11/13/19 11/14/19 06:59 06:59 06:59 Intake Total 500 Output Total 800 Balance -300 Result Diagrams: 11/14/19 04:35 11/14/19 04:35 Phys Exam - Physical Examination Constitutional: NAD HEENT: moist MMs Neck: supple even chest rise and fall, no accessory muscle use Gastrointestinal: no distention Musculoskeletal: no edema Neurological: moves all 4 limbs Psychiatric: normal affect Skin: no rash Dx/Plan (1) COVID-19 Code(s): U07.1 - COVID-19 Status: Acute (2) Diabetes type 2, controlled Code(s): E11.9 - TYPE 2 DIABETES MELLITUS WITHOUT COMPLICATIONS Status: Chronic (3) GERD (gastroesophageal reflux disease) Code(s): K21.9 - GASTRO-ESOPHAGEAL REFLUX DISEASE WITHOUT ESOPHAGITIS Status: Chronic (4) Hypertension Code(s): I10 - ESSENTIAL (PRIMARY) HYPERTENSION Status: Chronic - Plan Plan: COVID 19 Positive -symptom onset 11/11, CTA/lab c/w -no O2 requirement reported - droplet/airborne precautions Hypokalemia -monitor and replace as needed Type 2 DM, Insulin Dependent -lantus 64u, SSI -continue home metformin HTN -home meds GERD -home pantoprazole VTE PPX: lovenox Code: Full PCP: Nakul Dispo: dc today with continued stability Addendum - Attending - Attending Attestation Date/Time: 11/14/19 6073 I personally evaluated the patient and discussed the management with Dr. Chavez. I agree with the History, Examination, Assessment and Plan documented above with any addition or exceptions noted below. No respiratory sx at this point and feels well. I discussed with her that she may be early in her COVID disease course but given her lack of symptoms, she can be d/c home. I discussed RTC precautions with the patient and she expressed understanding. Also discussed 14 day quarantine.
[2019-11-14] MEDS ORDERED: metFORMIN 500 MG TAB PO SCH (08:00)
[2019-11-14] MEDS ORDERED: Aspirin 81 mg Enteric Coated Tablet PO SCH (09:00)
[2019-11-14] MEDS ORDERED: Amlodipine 5 MG TAB PO SCH (09:00)
[2019-11-14] MEDS ORDERED: Enoxaparin Sodium 40 MG/0.4 ML SYRINGE SC SCH (09:00)
[2019-11-14 11:16] VITALS: BP 117/60; TEMP 99.6
[2019-11-14] MEDS ORDERED: Insulin Glargine 64 UNITS in Pre-Filled Syringe 1 EACH SC SCH (21:00)
[2019-11-14] MEDS ORDERED: INSULIN GLARGINE HUM REC ANLOG 64 UNIT SC SCH (21:00)
--- NOTE | 2019-11-15 11:33 | DIS ---
DATE OF ADMISSION: 11/13/2019 DATE OF DISCHARGE: 11/14/2019 ADMITTING ATTENDING: Amy Schultz MD DISCHARGE ATTENDING: Slivano Mena MD CONSULT: None. IMAGING: None. DISCHARGE MEDICATIONS: 1. Amlodipine 5 mg p.o. b.i.d. 2. Aspirin 81 mg p.o. daily. 3. Lantus 64 units subcutaneous at bedtime. 4. Metformin 1000 mg p.o. b.i.d. 5. Protonix 40 mg p.o. daily. 6. Metoprolol 25 mg p.o. daily. DISCHARGE DIAGNOSIS: COVID-19 positive. SECONDARY DIAGNOSES: 1. Hypokalemia. 2. Type 2 insulin-dependent diabetic. 3. Hypertension. 4. Gastroesophageal reflux disease. HOSPITAL COURSE: Ms. Mcguire is a 69-year-old female, who complains of generalized weakness for the past 2 to 3 days. Fever starting earlier to the day prior to arrival. Denies any other symptoms. She is not short of breath or having any chest pain. In the emergency room, she was recorded with a temperature of a 101. D-dimer elevated at that time. CT significant for ground-glass opacities. Tested positive by rapid screening in [facility] ER, admitted to floor for further workup and monitoring. The patient did not have an oxygen requirement, remained stable with her vital signs on floor reports on rounds that morning that she has been having symptoms for the past week or so. The patient was stable on room air, determined that she was appropriate for self quarantine outside of the hospital. DISCHARGE INSTRUCTIONS: Location, home. Diet, diabetic. Activity, as tolerated. Follow up with PCP after 14 days of quarantine. Job ID: [id number]
== END 2019-11-14 14:12 | disposition home or self-care (01) ==
LOC: ERS 19:09 → 2SW 20:27
PROVIDERS: ADMIT Family Medicine; ATTEND Family Medicine
DX: U07.1 COVID-19 (principal); J12.89 Other viral pneumonia; E87.6 Hypokalemia; E11.9 Type 2 diabetes mellitus without complications; K21.9 Gastro-esophageal reflux disease without esophagitis; I10 Essential (primary) hypertension; M19.90 Unspecified osteoarthritis, unspecified site; Z87.891 Personal history of nicotine dependence; Z79.4 Long term (current) use of insulin; Z79.82 Long term (current) use of aspirin; Z79.899 Other long term (current) drug therapy; Z90.49 Acquired absence of other specified parts of digestive tract
CPT/HCPCS: 80053; 82728; 82962; 84484 ×2; 85025; 85379; 86140; 93005; 96372; 99285; G0378 ×3; U0002; 36415; 36416; J1650